=== PATIENT | female | born 1990 | race Caucasian/White ===

== ENCOUNTER → 2023-02-17 09:02 | Outpatient (CLI) | payer BC, OTHER, SELFPAY ==
[2023-02-17 18:14] LABS: Basophils % 0.4 % (0.1-2.0); Eosinophils # 0.1 K/mm3 (0.0-0.4); Eosinophils % 0.7 % (0.1-12.0); Hematocrit 41.2 % (37.0-47.0); Hemoglobin 13.5 g/dL (12.2-16.2); Lymphocytes # 2.1 K/mm3 (0.7-4.5); Lymphocytes % 31.9 % (10-50); Mean Corpuscular HGB Conc 32.7 g/dL (31.8-35.4); Mean Corpuscular Hemoglobin 28.1 pg (27.0-31.2); Mean Corpuscular Volume 85.9 fl (81-99); Mean Platelet Volume 9.2 fl (7.4-10.4); Monocytes # 0.3 K/mm3 (0.1-1.0); Monocytes % 3.8 % (1.7-9.3); Neutrophils # 4.1 K/mm3 (1.8-7.8); Neutrophils % 63.2 % (37.0-80.0); Platelet Count 398 K/mm3 (142-424); Red Cell Distribution Width 13.3 % (11.5-17.5); White Blood Count 6.5 K/mm3 (4.8-10.8)
[2023-02-17 18:37] LABS: Alanine Aminotransferase 77 U/L (12-78); Albumin Level 4.5 g/dl (3.5-5.0); Albumin/Globulin Ratio 1.7 (1.1-1.8); Alkaline Phosphatase 91 U/L (38-126); Aspartate Amino Transferase 49 U/L (14-36); Bilirubin,Total 0.6 mg/dl (0.2-1.3); Blood Urea Nitrogen 4 mg/dl (7-17); Calcium 9.2 mg/dl (8.4-10.2); Carbon Dioxide 23 mmol/L (22.0-30.0); Chloride 97 mmol/L (98-107); Chol/HDL Ratio 1.9 (1-3.5); Cholesterol 165 mg/dl (140-200); Estimated Glomerular Filt Rate 117 ml/min (>60); GFR (African American) 142 ML/MIN (>60); Globulin 2.6 g/dL (1.3-3.2); Glucose 81 mg/dl (74-100); HDL Cholesterol 89 mg/dl (40-60); Sodium 136 mmol/L (136-145); Total Protein,Serum 7.1 g/dl (6.3-8.2); Triglycerides 96 mg/dl (30-150); VLDL Cholesterol 19 mg/dL (0-40)
[2023-02-17 18:48] LABS: Direct LDL Cholesterol 67.29 mg/dL (100-129)
[2023-02-17 19:07] LABS: Thyroid Stimulating Hormone 2.25 uIU/mL (0.465-4.68)
[2023-02-17 19:57] LABS: Hemoglobin A1C 5.1 % (4.0-6.0)
== END ==
PROVIDERS: PCP Nurse Practitioner; Visit Provider Nurse Practitioner
DX: Z00.00 Encounter for general adult medical examination without abnormal findings (principal); Z13.0 Encounter for screening for diseases of the blood and blood-forming organs and certain disorders involving the immune mechanism; Z13.1 Encounter for screening for diabetes mellitus; Z13.220 Encounter for screening for lipoid disorders; Z13.29 Encounter for screening for other suspected endocrine disorder
CPT/HCPCS: 80053; 80061; 83036; 84443; 85025

== ENCOUNTER → 2023-10-06 23:29 | Outpatient (CLI) | payer BC, OTHER, SELFPAY ==
[2023-10-08 09:48] LABS: Rapid Plasma Reagin Ab Titer Non Reactive titer (NonRea<1:1)
[2023-10-08 10:13] LABS: HIV Screen 4th Generation wRfx Non Reactive (Non Reactive)
[2023-10-08 11:19] LABS: HBsAg Screen Negative (Negative); HCV Ab Non Reactive (Non Reactive); Hep A Ab, IGM Negative (Negative); Hep B Core Ab, IgM Negative (Negative)
[2023-10-09 00:04] LABS: Neisseria gonorrhoeae, NAA Negative (Negative)
[2023-10-13 22:35] LABS: HSV 2 IgG, Type Spec <0.91
== END ==
PROVIDERS: PCP Nurse Practitioner; Visit Provider Nurse Practitioner
DX: Z11.3 Encounter for screening for infections with a predominantly sexual mode of transmission (principal)
CPT/HCPCS: 80074; 86593; 86695; 86703; 86790; 87491; 87591; G0432

== ENCOUNTER 2023-11-10 10:53 | Outpatient (CLI) | payer BC, OTHER, SELFPAY ==
--- NOTE | 2023-11-10 10:54 | US_ITS ---
PROCEDURE: US TRANSVAGINAL CLINICAL INDICATION: abdominal pains COMPARISON: No exams were available for comparison FINDINGS: Transvaginal sonographic images of the pelvis were obtained. UTERUS: 6.3cm x 3.4cmx 2.5 cm anteverted with a combined endometrial thickness of 5.8mm. LEFT OVARY: Not visualized RIGHT OVARY: Not visualized Both ovaries are not seen today. Doppler flow to both ovaries are seen.There is no fluid in the cul-de-sac. IMPRESSION: 1. Anteverted uterus normal in shape and size. The endometrium appears normal. 2. Neither ovary could be visualized today. Patient states she had 1 ovary removed but does not know which one. 3. No fluid in the cul-de-sac. Dictated by: Gutierrez Valdez MD 11/10/2023 14:41 Gutierrez Valdez MD in OV 11/10/2023 14:41
== END 2023-11-10 23:59 ==
LOC: RAD 10:54
PROVIDERS: PCP Nurse Practitioner; Visit Provider Obstetrics & Gynecology
DX: R10.2 Pelvic and perineal pain (principal)
CPT/HCPCS: 76830

== ENCOUNTER 2023-12-28 21:10 | Outpatient (CLI) | payer BC, OTHER, SELFPAY ==
[2023-12-28 18:43] LABS: Adenovirus,PCR Not Detected (NotDetected); Coronavirus 19, PCR Not Detected (NotDetected); Coronavirus 229E Not Detected (NotDetected); Coronavirus NL63 Not Detected (NotDetected); Coronavirus OC43 Not Detected (NotDetected); Coronovirus HKU1,PCR Not Detected (NotDetected); Human Metapneumovirus Not Detected (NotDetected); Influenza A, PCR Not Detected (NotDetected); Influenza AH1, 2009 Not Detected (NotDetected); Influenza AH1, PCR Not Detected (NotDetected); Influenza AH3,PCR Not Detected (NotDetected); Influenza B, PCR Not Detected (NotDetected); Parainfluenza 1, PCR Not Detected (NotDetected); Parainfluenza 2, PCR Not Detected (NotDetected); Parainfluenza 3, PCR Not Detected (NotDetected); Parainfluenza 4, PCR Not Detected (NotDetected); Respiratory Syncytial Virus Not Detected (NotDetected)
[2023-12-28 20:37] LABS: Rhinovirus/Enterovirus Detected (NotDetected)
== END 2023-12-28 23:59 ==
LOC: LAB.DROPOF 21:10
PROVIDERS: PCP Nurse Practitioner; Visit Provider Nurse Practitioner
DX: J06.9 Acute upper respiratory infection, unspecified (principal); B34.1 Enterovirus infection, unspecified
CPT/HCPCS: 87632; 87635

== ENCOUNTER 2024-05-10 11:25 | Outpatient (CLI) | payer BC, OTHER, SELFPAY ==
[2024-05-10 19:39] LABS: Basophils % 0.4 % (0.1-2.0); Eosinophils # 0.1 K/mm3 (0.0-0.4); Eosinophils % 0.7 % (0.1-12.0); Hematocrit 41.8 % (37.0-47.0); Hemoglobin 14.8 g/dL (12.2-16.2); Lymphocytes # 2.8 K/mm3 (0.7-4.5); Lymphocytes % 30.5 % (10-50); Mean Corpuscular HGB Conc 35.3 g/dL (31.8-35.4); Mean Corpuscular Hemoglobin 31.4 pg (27.0-31.2); Mean Corpuscular Volume 88.8 fl (81-99); Monocytes # 0.3 K/mm3 (0.1-1.0); Monocytes % 3.4 % (1.7-9.3); Neutrophils # 5.9 K/mm3 (1.8-7.8); Neutrophils % 64.9 % (37.0-80.0); Platelet Count 460 K/mm3 (142-424); Red Cell Distribution Width 13.7 % (11.5-17.5); White Blood Count 9.1 K/mm3 (4.8-10.8)
[2024-05-10 20:08] LABS: Alanine Aminotransferase 24 U/L (12-78); Albumin Level 4.5 g/dl (3.5-5.0); Albumin/Globulin Ratio 1.6 (1.1-1.8); Alkaline Phosphatase 80 U/L (38-126); Anion Gap 11.7 mEq/L (5-15); Aspartate Amino Transferase 21 U/L (14-36); Bilirubin,Total 0.5 mg/dl (0.2-1.3); Blood Urea Nitrogen 11 mg/dl (7-17); Calcium 9.5 mg/dl (8.4-10.2); Carbon Dioxide 26 mmol/L (22.0-30.0); Chloride 104 mmol/L (98-107); Cholesterol 207 mg/dl (140-200); Estimated Glomerular Filt Rate 117 ml/min (>60); GFR (African American) 141 ML/MIN (>60); Globulin 2.9 g/dL (1.3-3.2); Glucose 91 mg/dl (74-100); HDL Cholesterol 101 mg/dl (40-60); Potassium 3.7 mmoL/L (3.5-5.1); Sodium 138 mmol/L (136-145); Total Protein,Serum 7.4 g/dl (6.3-8.2); Triglycerides 104 mg/dl (30-150); VLDL Cholesterol 21 mg/dL (0-40)
[2024-05-10 20:21] LABS: Direct LDL Cholesterol 83.99 mg/dL (100-129)
[2024-05-10 20:38] LABS: Thyroid Stimulating Hormone 2.41 uIU/mL (0.465-4.68)
[2024-05-10 21:21] LABS: Hemoglobin A1C 4.9 % (4.0-6.0)
== END 2024-05-10 23:59 | disposition home or self-care (01) ==
LOC: LAB.DROPOF 05-11 10:57
PROVIDERS: PCP Nurse Practitioner; Visit Provider Nurse Practitioner
DX: Z13.1 Encounter for screening for diabetes mellitus (principal); Z13.0 Encounter for screening for diseases of the blood and blood-forming organs and certain disorders involving the immune mechanism; Z13.29 Encounter for screening for other suspected endocrine disorder; Z13.220 Encounter for screening for lipoid disorders
CPT/HCPCS: 80050; 80053; 80061; 83036; 84443; 85025

== ENCOUNTER 2025-07-04 10:38 | Outpatient (CLI) | payer BC, OTHER, SELFPAY ==
--- OUTSIDE RECORDS SUMMARY | 2018-09-03 21:15 | XMS_ITS | Encounter Summary ---
Author Organization [facility] Address [facility] [place] [address] Care Team Providers Care Small Offset Printer Name Role Phone Alessandro Pemberton MD Primary Care Provider [phone] Encounter Details Date Type Department Care Team (Latest Contact Info) Description 09/03/2018 8:15 PM EST Hospital Encounter [facility] [place] [id number] Left without seen Social History Tobacco Use Types Packs/Day Years Used Date Smoking Tobacco: Never Smokeless Tobacco: Never Alcohol Use Standard Drinks/Week Comments No 0 (1 standard drink = 0.6 oz pur e alcohol) Comments No Sex and Gender Information Value Date Recorded Sex Assigned at Not on file Legal Sex Female 2:49 PM EDT Gender Identity Not on file Sexual Orientation Not on file COVID-19 Exposure Response Date Recorded In the last month, have you been in contact with someone who was confirmed or suspected to have Coronavirus / COVID-19? No / Unsure 07/25/2021 8:02 AM EDT documented as of this encounter Functional Status * Alcohol Screening Score Answer Date of Assessment Author 0 09/02/2020 1:40 PM Kalina Felix RN * Drug Screening Score Answer Date of Assessment Author 0 09/02/2020 1:40 PM Kalina Felix RN * Question Answer Date of Assessment Author How often do you have a drin k containing alcohol? 0 09/02/2020 1:40 PM Kalina Felix R N How many drinks containing a lcohol do you have on a typical day when you are drinking? 0 09/02/2020 1:40 PM Kalina Felix R N How often do you have six or more drinks on one occasion? 0 09/02/2020 1:40 PM Gen Felix RN AUDIT-C to Determine Rows 4-10 0 09/02/2020 1:40 PM Kalina Felix RN documented as of this encounter Plan of Treatment Not on file documented as of this encounter Goals Goal Patient Goal Type Associated Problems Recent Progress Patient-Stated? Author Maintain a healthy diet, exercise regularly and maintain an ideal body weight General No Aurea Calderón, GIORGIO documented as of this encounter Visit Diagnoses Not on filedocumented in this encounter Additional Health Concerns Infection Onset Date Last Indicated Resolved Time R/O C-Diff 11/15/2019 11/15/2019 11/17/2019 10:1 3 PM EST R/O C-Diff 06/10/2020 06/10/2020 06/10/2020 9:45 PM EDT R/O COVID-19 05/14/2021 05/14/2021 05/14/2021 6:59 PM EDT documented as of this encounter Care Teams Small Offset Printer Relationship Specialty Start Date End Date Alessandro Pemberton MD PCP - General Family Medicine 12/31/16 11/02/18 documented as of this encounter
[2025-07-04 15:58] LABS: Hematocrit 41.6 % (37.0-47.0); Hemoglobin 13.5 g/dL (12.2-16.2); Immature Granulocytes % 0.3 %; Mean Corpuscular HGB Conc 32.5 g/dL (31.8-35.4); Mean Corpuscular Hemoglobin 29.4 pg (27.0-31.2); Mean Corpuscular Volume 90.6 fl (81-99); Nucleated Red Blood Cells % 0 %; Platelet Count 408 K/mm3 (142-424); Red Blood Count 4.59 M/mm3 (4.20-5.40); Red Cell Distribution Width-SD 44.1 fL; White Blood Count 6.4 K/mm3 (4.8-10.8)
[2025-07-04 17:09] LABS: Alanine Aminotransferase 23 U/L (12-78); Albumin Level 4.4 g/dl (3.5-5.0); Albumin/Globulin Ratio 1.7 (1.1-1.8); Alkaline Phosphatase 76 U/L (38-126); Anion Gap 10.9 mEq/L (5-15); Aspartate Amino Transferase 23 U/L (14-36); Bilirubin,Total 0.4 mg/dl (0.2-1.3); Blood Urea Nitrogen 8 mg/dl (7-17); Calcium 9.4 mg/dl (8.4-10.2); Carbon Dioxide 25 mmol/L (22.0-30.0); Chloride 103 mmol/L (98-107); Creatinine,Serum 0.60 mg/dl (0.52-1.04); Estimated Glomerular Filt Rate 116 ml/min (>60); GFR (African American) 140 ML/MIN (>60); Globulin 2.6 g/dL (1.3-3.2); Glucose 86 mg/dl (74-100); Potassium 3.9 mmoL/L (3.5-5.1); Sodium 135 mmol/L (136-145); Total Protein,Serum 7.0 g/dl (6.3-8.2)
[2025-07-04 17:39] LABS: Thyroid Stimulating Hormone 2.16 uIU/mL (0.465-4.68)
[2025-07-04 17:58] LABS: Vitamin B12 294 pg/mL (239-931)
[2025-07-04 19:57] LABS: Folate > 20.00 ng/mL
--- OUTSIDE RECORDS SUMMARY | 2025-07-06 10:40 | XMS_ITS | Clinical Summary ---
Author Organization [facility] Address [address] [place] [address] Care Team Providers Care Director Of Compliance Name Role Phone None, None Primary Care Provider Unavailkenn e Joycelyn Leslie MD Unavailable [phone] Cricket Angel MD Unavailable [phone] Toya Lopez MD Unavailable [phone] Trip Messer MD Unavailable [phone] Kiara Uribe NP Unavailable [phone] Marguerite Conn NP Unavailable [phone] Allergies Active Allergy Reactions Criticality Noted Date Comments Adhesive Rash 08/02/2017 Adhesive Tape-Silicones 08/10/2024 Infliximab Hives,Shortness Of Breath Medium 03/24/2018 Nsaids (Non-Steroidal Anti-Inflammatory Drug) Other (See Comments) 06/09/2019 Does not take NSAIDS d/t Crohn's Infliximab 08/10/2024 Medications norgestimate-et hinyl estradiol (SPRINTEC, 28, PO) Take by mouth. Activ e Stelara 90 mg/mL Syringe 12/13/19 Active dicyclomine (BENTYL) 20 mg tablet Take 20 mg by mouth 4 times daily. Takes as needed Active risankizumab-rz aa (SKYRIZI IV) by Intravenous route. Active acetaminophen (TylenoL) 325 mg Capsule Take 325 mg by mouth. Active ondansetron (ZOFRAN) 4 mg tablet Take 1 Tablet (4 mg) by mouth every 6 hours as needed for Nausea or Vomiting for up to 8 doses. 8 Tablet 12/10/19 23 Active promethazine (PHENERGAN) 25 mg tablet Take 1 Tablet (25 mg) by mouth every 6 hours as needed for Nausea or Vomiting. 12 Tablet 02/09/20 23 Active promethazine (PHENERGAN) 25 mg suppository Insert 1 Suppository (25 mg) into rectum every 6 hours as needed for Nausea or Vomiting. 12 Suppository 02/09/20 23 Active predniSONE (DELTASONE) 10 mg tablet Take this medication for 10 days. Take 5 tablets daily for 2 days Take 4 tablets daily for 2 days Take 3 tablets daily for 2 days Take 2 tablets daily for 2 days Take 1 tablets daily for 2 days Then stop. 30 Tablet 02/09/20 23 Active risankizumab-rz aa (Skyrizi) 360 mg/2.4 mL (150 mg/mL) wearable injector 360 mg by Subcutaneous route. Every 8 weeks Active methylPREDNISol one (MEDROL) 4 mg tab (dosepak) follow package directions 21 Tablet 08/10/20 24 Active promethazine (PHENERGAN) 25 mg tablet Take 1 Tablet (25 mg) by mouth every 6 hours as needed for Nausea or Vomiting. 30 Tablet 08/10/20 24 Active Active Problems Problem Noted Date Diagnosed Date Crohn's disease 06/09/2019 Poor intravenous access 06/06/2019 Overview (01/21/2022): Has a port Crohn's disease of small intestine with complica tion 09/16/2017 Overview (01/21/2022): Dx in 2017. Currently treated with Stelara every 6 weeks Sees [facility] Dr. Marie No abdominal pain, some diarrhea Assessment & Plan (01/21/2022 2:06 PM EDT): Well controlled currently continue per GI Microcytic anemia 08/04/2017 Overview (01/21/2022): Related to Crohn as diagnosis Assessment & Plan (01/21/2022 2:07 PM EDT): Monitor CBC yearly History of colon resection 07/15/2010 Overview (01/21/2022): premmie 30 weeker, had colon resection at 10 days of age secondary to NEC Resolved Problems Problem Noted Date Diagnosed Date Resolved Date C. difficile colitis 03/24/2018 022 Immunizations Immunization Administration Dates Next Due HPV 10/09/2013,06/07/2013,04/05/2013 PPD Test 07/10/2013 Tetanus 05/07/2004 Family History Medical History Relation Name Comments High Blood Pressure Father Breast Cancer Maternal Grandmother Cancer Maternal Grandmother thyroid Heart Problems Maternal Grandmother Pacem keith High Blood Pressure Mother Migraines Mother Anesthesia Complications Neg Hx Relation Name Status Comments Father Maternal Grandmother Mother Social History Tobacco Use Types Packs/Day Years Used Date Smoking Tobacco: Never Smokeless Tobacco: Never Tobacco Cessation:Counseling Given: Not Answered Alcohol Use Standard Drinks/Week Comments Never 0 (1 standard drink = 0.6 oz pur e alcohol) PHQ-2 Answer Date Recorded PHQ-9 Auto Total 0 01/21/2022 Comments No Sex and Gender Information Value Date Recorded Sex Assigned at Not on file Legal Sex Female 11:55 AM EDT Gender Identity Not on file Sexual Orientation Not on file Last Filed Vital Signs Vital Sign Reading Time Taken Comments Blood Pressure 93/58 08/10/2024 5:23 PM EDT Pulse 81 08/10/2024 5:23 PM EDT Temperature 36.9 C (98.4 F) 08/10/2024 12:19 PM EDT Respiratory Rate 16 08/10/2024 5:23 PM EDT Oxygen Saturation 100% 08/10/2024 5:23 PM EDT Inhaled Oxygen Concentration - - Weight 72.6 kg (160 lb) 02/07/2023 9:33 PM EDT Height 162.6 cm (5' 4 ) 02/07/2023 9:33 PM EDT Body Mass Index 27.46 02/07/2023 9:33 PM EDT Plan of Treatment Health Maintenance Due Date Last Done Comments Lipid Screening 2012 Cervical Cancer Screening 2013 Tetanus Vaccination (Every 1 0 Years) 05/07/2014 05/07/2004 Depression Screening 10/11/2024 01/21/2022 COVID-19 Vaccine (2023-2 5 season) 2025 Influenza Vaccination (#1) 2025 10/23/1994, Influenza Vaccination (Yearly) Discontinued 10/23/1994 , 09/18/1994 HPV Vaccine Completed 10/09/2013, 05/12, 04/05/2013 Medical Devices Implanted Type Area Ball Truing Machine Operator Device Identifier Shelf Expiration Date Model / Serial / Lot Port Xcela Standard 8fr - [id number] Implanted:Qt y: 1 on 12/09/2022 by Ayaan Montoya MD at [facility] Vas Access [employer] 04/19/2027 [id number] / / [id number] Port Mri W/Sutures 8fr X 45cm Implanted:Qt y: 1 on 06/23/2019 by Trip Messer MD at [facility] Left: Subclavian * BARD VASCULAR 09/09/2020 [id number] / / [id number] Insurance ANTHEM ANTHEM Advance Directives For more information, please contact: [phone] * Full Code (Latest Code Status on File) Date Activated Date Inactivated Comments 09/10/2022 6:14 PM 12/09/2022 6:36 AM No automated chest compression devices for VAD Patients Care Teams Director Of Compliance Relationship Specialty Start Date End Date None, None [address] [place] [address] PCP - General 08/10/24 Joycelyn Leslie MD [address] [place] [address] Internal Medicine 08/10/24 Cricket Angel MD [facility] [address] [place] [address] Gastroenterology 01/07/22 Toya Lopez MD [address] [facility] [place] [address] Internal Medicine 09/11/22 Trip Messer MD [address] [place] [address] General Surgery 10/18/22 Kiara Uribe NP [address] [place] [address] Nurse Practitioner Nurse Practitioner, Adult Health 12/01/22 Marguerite Conn, REFUELING RAMP SUPERVISOR [address] [place] [address] Nurse Practitioner Radiology 12/09/22
--- OUTSIDE RECORDS SUMMARY | 2025-07-06 10:40 | XMS_ITS | Clinical Summary ---
Author Organization [facility] Address [address] [place] [address] Phone Care Team Providers Care Diesel Roller Operator Name Role Phone Shasta Cabrera Unavailable [phone] Conditions or Problems No information available. Medications No information available. Medications Administered No information available. Allergies, Adverse Reactions, Alerts No information available. Results No information available. Plan of Care No information available. Procedures No information available. Vital Signs No information available. Immunizations No information available. Advance Directives No information available.
--- OUTSIDE RECORDS SUMMARY | 2025-07-06 10:40 | XMS_ITS | Clinical Summary ---
Author Organization [facility] Address [address] [place], [place] [address] Phone Care Team Providers Care Furnace Utility Operator Name Role Phone Rosa Raya NP Primary Care Provider [phone] Allergies Active Allergy Reactions Criticality Noted Date Comments Adhesive Rash Medium 08/02/2017 Infliximab Hives,Shortness Of Breath Medium 03/24/2018 Medications Norethindrn A-E Estradiol-Iron 1-20 (24)-75(4) mg-mcg-mg Tab Take by mouth daily. Reported on 12/30/2016 Active pantoprazole (PROTONIX) 40 mg Oral Tablet, Delayed Release (E.C.) Take 40 mg by mouth daily. Active Cyanocobalamin 1,000 mcg Oral Tablet Sustained Release Take 1,000 mcg by mouth daily. 30 Tab 7 Active ergocalciferol (DRISDOL) 50,000 unit Oral Capsule Take 50,000 Units by mouth once a week. Active fluticasone (FLONASE) 50 mcg/actuation Nasl [place], SuspensionIndicat ions:Acute effusion of both middle ears 1 [place] by Nasal route daily. 1 Bottle 8 Active butalbital-acetam gvpf-ypj-kzc 64-831-92-30 mg Oral Capsule Take by mouth every 4 hours. Active FLUoxetine (PROZAC) 20 mg Oral Capsule Take 20 mg by mouth daily. Active Saccharomyces boulardii (FLORASTOR) 250 mg Oral Capsule Take 1 Cap by mouth 2 times daily. 60 Cap 8 Active ferrous sulfate 325 mg (65 mg iron) Oral Tablet, Delayed Release (E.C.) TAKE ONE TABLET BY MOUTH TWICE A DAY 60 Tab 8 Active TROKENDI XR 100 mg Oral Capsule, Sust. Release 24 hr Take 100 mg by mouth daily. 30 Cap 5 9 Active rizatriptan (MAXALT) 10 mg Oral Tablet Take 1 at onset of headache and 1 more 2 hours later if pain persists. Do not exceed 2/d, 4/week or 9/month 9 Tab 5 9 Active oxyCODONE-acetami nophen (PERCOCET) 5-325 mg Oral TabletIndications :Post-op pain Take 1 Tab by mouth every 6 hours as needed for Acute Pain > 3 Days Medically Necessary (R52) (post-procedur e pain). 21 Tab 1 Active cephALEXin (KEFLEX) 500 mg Oral Capsule TAKE ONE (1) CAPSULE THREE (3) TIMES A DAY BY ORAL ROUTE FOR 10 DAYS. 1 Active methylPREDNISolon e (MEDROL DOSPACK) 4 mg Oral Tablets, Dose Pack TAKE DIRECTED FOR SIX (6) DAYS 1 Active promethazine-dext romethorphan (PROMETHAZINE-DM) 6.25-15 mg/5 mL Oral SyrupIndications: Cough Take 5 mL by mouth every 6 hours as needed. 118 mL 1 Active methylPREDNISolon e (MEDROL DOSPACK) 4 mg Oral Tablets, Dose Pack follow package directions 21 Tablet 2 Active methocarbamoL (ROBAXIN) 750 mg Oral Tablet Take 1 Tablet by mouth 3 times daily. 12 Tablet 2 Active tiZANidine (ZANAFLEX) 4 mg Oral TabletIndications :Crohn's disease of small intestine with complication (HCC),Low back pain, unspecified back pain laterality, unspecified chronicity, unspecified whether sciatica present,Sprain of ligaments of lumbar spine, initial encounter Take 1 Tablet by mouth nightly. 30 Tablet 2 Active Active Problems Patient Care Coordination No te Formatting of this note is d ifferent from the original. [facility] - Patrick Negron MD Interventional Pain Protocol: Anirudh report completed (EVERY 3 MONTHS) ( 06/26/2021) Pharmacy:[facility] [place] [address] [address] [facility] - [phone] [facility], [facility] [address] Sp[facility] Center additional info (Transportation, WC, Compound, No Show, PPW) Problem Noted Date Diagnosed Date Cholecystitis 09/02/2020 Overview (09/02/2020): Added automatically from request for surgery [id number] Chronic bilateral low back pain 09/15/2019 Myofascial pain syndrome 09/15/2019 Lumbosacral spondylosis without myelopathy 09/15 C. difficile colitis 03/24/2018 Crohn's disease of small intestine with complica tion 09/16/2017 Microcytic anemia 08/04/2017 History of colon resection 07/15/2010 Overview (07/15/2010): premmie 30 weeker, had colon resection at 8 days of age secondary to NEC Immunizations Immunization Administration Dates Next Due HPV Quadrivalent 10/09/2013,06/07/2013, 3 PPD Test 07/10/2013 Tetanus, Unspecified Formulation 05/07/2004 Surgical History Surgery Date Site/Laterality Comments ABDOMEN SURGERY COLON SURGERY had NEC and large intestines removed at 8 days old OVARY REMOVAL UPPER GASTROINTESTINAL ENDOSCOPY 08/04/2017 N/A ESOPHAGOGASTRODUODENOSCOPY with biopsy and COLONOSCOPY with biopsy ; Surgeon: Barrera Bennett MD; Location: [facility]; Service: Endoscopy COLONOSCOPY SMALL INTESTINE SURGERY SIGMOIDOSCOPY 03/28/2018 N/A FLEXIBLE SIGMOIDOSCOPY with biopsy; Surgeon: Cricket López MD; Location: [facility]; Service: Endoscopy IR PORT PLACEMENT EQUAL OR > 5 YEARS IR 2 LEVEL RIGHT MEDIAL BRAN CH BLOCK LUM SAC 08/31/2019 IR 2 LEVEL RIGHT MEDIAL BRANCH BLOCK LUM SAC 08/31/2019 [facility] IR 2 LEVEL RIGHT MEDIAL BRAN CH BLOCK LUM SAC 10/16/2019 IR 2 LEVEL RIGHT MEDIAL BRANCH BLOCK LUM SAC 10/16/2019 [facility] CHOLECYSTECTOMY, LAPAROSCOPIC 09/03/2020 N/A Laparoscopic cholecystectomy ; Surgeon: Ciro Milton MD; Location: [facility]; Service: General Medical History Medical History Date Comments NEC (necrotizing enterocolitis) Ovarian cyst Microcytic anemia 08/04/2017 Acute Crohn's disease, other complication (HCC) 09/10/2017 Family History Medical History Relation Name Comments High Blood Pressure Father High Cholesterol Father Ulcerative Colitis Father Stroke Maternal Grandmother High Blood Pressure Mother Migraines Mother Colon Cancer Other PGGM Ulcerative Colitis Paternal Grandfather Colon Polyps Neg Hx Hemochromatosis Neg Hx Liver Cancer Neg Hx Rectal Cancer Neg Hx Relation Name Status Comments Father Maternal Grandmother Mother Other PGGM Alive Paternal Grandfather Social History Tobacco Use Types Packs/Day Years Used Date Smoking Tobacco: Never Smokeless Tobacco: Never Tobacco Cessation:Counseling Given: No Alcohol Use Standard Drinks/Week Comments No 0 (1 standard drink = 0.6 oz pur e alcohol) Comments No Sex and Gender Information Value Date Recorded Sex Assigned at Not on file Legal Sex Female 2:49 PM EDT Gender Identity Not on file Sexual Orientation Not on file Obstetrics History Last Filed Vital Signs Vital Sign Reading Time Taken Comments Blood Pressure 110/80 06/27/2021 9:08 AM EDT Pulse 61 06/27/2021 9:08 AM EDT Temperature 37.3 C (99.1 F) 05/14/2021 6:46 PM EDT Respiratory Rate 20 05/14/2021 6:46 PM EDT Oxygen Saturation 97% 06/27/2021 9:08 AM EDT Inhaled Oxygen Concentration - - Weight 72.6 kg (160 lb) 06/17/2022 8:38 AM EDT Height 162.6 cm (5' 4 ) 06/17/2022 8:38 AM EDT Body Mass Index 27.46 06/17/2022 8:38 AM EDT Plan of Treatment Health Maintenance Due Date Last Done Comments Annual Wellness Exam 1995 DTaP/TDaP/Td (1 - Tdap) 2011 Hepatitis B Vaccine (1 of 3 - 19+ 3-dose series) 2011 HPV/Pap Cotest 2022 Cervical Cancer Screening 10/28/2022 Pap Smear 10/28/2022 10/28/2019, 05/11, 05/27/2016, Additional history exists COVID-19 Vaccine ( season) 2025 Influenza Vaccine (#1) 2025 07/22/2018 Meningococcal B Vaccine Aged Out No l onger eligible based on patient's age to complete this topic Pneumococcal Vaccine 0-49 Aged Out No longer eligible based on patient's age to complete this topic Goals Goal Patient Goal Type Associated Problems Recent Progress Patient-Stated? Author Maintain a healthy diet, exercise regularly and maintain an ideal body weight General No Aurea Calder[facility], [facility] [address] [place] [id number] Advance Directives For more information, please contact: [phone] * Full Code (Latest Code Status on File) Date Activated Date Inactivated Comments 03/24/2018 12:45 AM 03/29/2018 8:43 PM Care Teams Furnace Utility Operator Relationship Specialty Start Date End Date Rosa aRya NP [address] [place] [address] PCP - General Nurse Practitioner 11/03/18
--- OUTSIDE RECORDS SUMMARY | 2025-07-06 10:40 | XMS_ITS | Encounter Summary ---
Author Organization [place] Address [facility] [place] [address] Care Team Providers Care Baker Biscuit Name Role Phone Rosa Raya NP Primary Care Provider [phone] Encounter Details Date Type Department Care Team (Latest Contact Info) Description 08/25/2019 Lab Requisition [facility] [address] [place] [id number] Rosa Raya PUBLIC AID ELIGIBILITY ASSISTANT [address] [place], [place] [id number] Crohn's disease, unspecified, without complications (HCC); Iron deficiency anemia, unspecified; Unspecified osteoarthritis, unspecified site Social History Tobacco Use Types Packs/Day Years Used Date Smoking Tobacco: Never Smokeless Tobacco: Never Alcohol Use Standard Drinks/Week Comments No 0 (1 standard drink = 0.6 oz pur e alcohol) Comments No Sex and Gender Information Value Date Recorded Sex Assigned at Not on file Legal Sex Female 2:49 PM EDT Gender Identity Not on file Sexual Orientation Not on file documented as of this encounter Plan of Treatment Not on file documented as of this encounter Goals Goal Patient Goal Type Associated Problems Recent Progress Patient-Stated? Author Maintain a healthy diet, exercise regularly and maintain an ideal body weight General No Aurea Calderón CCMA documented as of this encounter Procedures Procedure Name Priority Date/Time Associated Diagnosis Comments CALPROTECTIN, FECAL - REF LAB Routine 08/25/2019 7:40 PM EST Crohn's disease, unspecified, without complications (HCC) Iron deficiency anemia, unspecified Unspecified osteoarthritis, unspecified site documented in this encounter Results * (ABNORMAL) CALPROTECTIN, FECAL - REF LAB (08/25/2019 7:40 PM EST) Calprotectin, Fecal 568(H) <=50 ug/g 08/29 11:10 AM EST [employer] Comment: Fecal Calprotectin is an indicator of the presence of neutrophils in stool and is not specific for IBD. Other intestinal ailments including GI infections and colorectal cancer can result in elevated concentrations of calprotectin. The diagnosis of IBD cannot be established solely on the basis of a positive calprotectin result. Patients with IBD fluctuate between active and inactive stages of disease. Calprotectin results may also fluctuate. GI bleeding of as much as 100 mL per day will increase the fecal calprotectin concentration by only 15 ug/g. INTERPRETIVE INFORMATION: Calprotectin, Fecal 50 ug/g or less: Normal 51-120 ug/g: Borderline elevated, test should be re-evaluated in 4-6 weeks. 121 ug/g or greater: Abnormal Performed by [facility], [address] [place] [address] [id number] [email or web address], Gurpreet Sands MD, Lab. Director Stool SPECIMEN FROM RECTUM / Unknown 08/25/2019 7:40 PM EST 08/25/2019 9:03 PM EST us Rosa Raya PUBLIC AID ELIGIBILITY ASSISTANT BODY FLUIDS AND STOOLS ORDERABL ES Final Result [employer] [address] [place] [address] [id number] documented in this encounter Visit Diagnoses Diagnosis Crohn's disease, unspecified, without complications (HCC) Iron deficiency anemia, unspecified Unspecified osteoarthritis, unspecified site documented in this encounter Additional Health Concerns Infection Onset Date Last Indicated Resolved Time R/O C-Diff 11/15/2019 11/15/2019 11/17/2019 10:1 3 PM EST R/O C-Diff 06/10/2020 06/10/2020 06/10/2020 9:45 PM EDT R/O COVID-19 05/14/2021 05/14/2021 05/14/2021 6:59 PM EDT documented as of this encounter Care Teams Baker Biscuit Relationship Specialty Start Date End Date Rosa Raya NP [address] [place] [address] PCP - General Nurse Practitioner 11/03/18 documented as of this encounter
--- OUTSIDE RECORDS SUMMARY | 2025-07-06 10:41 | XMS_ITS | Encounter Summary ---
Author Organization [place] [address] Care Team Providers Care Faculty I On Call Medical Assistant Name Role Phone Alessandro Pemberton MD Primary Care Provider [phone] Rosa Raya NP Primary Care Provider [phone] Encounter Details Date Type Department Care Team (Late st Contact Info) Description 09/03/2018 Lab Requisition [facility] [place] [address] Syed Stanton MD [address] [place] [phone] Crohn's disease without complication (HCC); Allergic urticaria; Iron deficiency anemia due to chronic blood loss; Enterocolitis due to Clostridium difficile Social History Tobacco Use Types Packs/Day Years [...] ideal body weight General No Aurea Calderón, [facility] documented as of this encounter Procedures Procedure Name Priority Date/Time Associated Diagnosis Comments CALPROTECTIN, FECAL - REF LAB Routine 09/03/2018 4:35 PM EST Crohn's disease without complication (HCC) Allergic urticaria Iron deficiency anemia due to chronic blood loss Enterocolitis due to Clostridium difficile documented in this encounter Results * (ABNORMAL) CALPROTECTIN, FECAL - REF LAB (09/03/2018 4:35 PM EST) Calprotectin, Fecal 330(H) <=50 ug/g 09/05 6:28 PM EST [facility], [facility] Comment: Fecal Calprotectin is an indicator of [...] 121 ug/g or greater: Abnormal Performed by [facility], [address] [place] [address] [email or web address], Gurpreet Sands MD, Lab. Director Stool SPECIMEN FROM RECTUM / Unknown 09/03/2018 4:35 PM EST 09/03/2018 8:28 PM EST us Syed Stanton MD BODY FLUIDS AND STOOLS MATTHEW REECE Final Result [facility] [address] [place] [address] documented in this encounter Visit Diagnoses Diagnosis Crohn's disease without complication (HCC) Regional enteritis of unspecified site Allergic urticaria Iron deficiency anemia due to chronic blood loss Iron deficiency anemia secondary to blood loss (chronic) Enterocolitis due to Clostridium difficile Intestinal infection due to clostridium difficile documented in this encounter Additional Health Concerns Infection Onset Date Last Indicated Resolved Time R/O C-Diff 11/15/2019 11/15/2019 11/17/2019 10:1 3 PM EST R/O C-Diff 06/10/2020 06/10/2020 06/10/2020 9:45 PM EDT R/O COVID-19 05/14/2021 05/14/2021 05/14/2021 6:59 PM EDT documented as of this encounter Care Teams Faculty I On Call Medical Assistant Relationship Specialty Start Date End Date Alessandro Pemberton MD PCP - General Family Medicine 12/31/16 11/02/18 Rosa Raya NP [address] [place] [address] PCP - General Nurse Practitioner 11/03/18 documented as of this encounter
--- OUTSIDE RECORDS SUMMARY | 2025-07-06 10:41 | XMS_ITS | Encounter Summary ---
Author Organization [facility] [place] [facility] Address [address] [place] [id number] Care Team Providers Care Gear Setter Name Role Phone Joycelyn Leslie MD Primary Care Provider [phone] None, None Primary Care Provider Unavailabl e Joycelyn Leslie MD Unavailable [phone] Cricket Angel MD Unavailable [phone] Toya Lopez MD Unavailable [phone] Trip Messer MD Unavailable [phone] Kiara Uribe NP Unavailable [phone] Marguerite Conn NP Unavailable [phone] Encounter Details Date Type Department Care Team (Late st Contact Info) Description 01/07/2022 Orders Only Ambulatory Procedures [address] [place], [place] [id number] Madison Concepcion RN Crohn's disease of small intestine with complication (Primary Dx); Poor intravenous access Social History Tobacco Use Types Packs/Day Years Used Date Smoking Tobacco: Never Smokeless Tobacco: Never Alcohol Use Standard Drinks/Week Comments Not Currently 0 (1 standard drink = 0.6 oz pur e alcohol) Comments No Sex and Gender Information Value Date Recorded Sex Assigned at Not on file Legal Sex Female 11:55 AM EDT Gender Identity Not on file Sexual Orientation Not on file documented as of this encounter Plan of Treatment Not on file documented as of this encounter Visit Diagnoses Diagnosis Crohn's disease of small intestine with complication (CMS/HCC)- Primary Regional enteritis of small intestine Poor intravenous access Other specified conditions influencing health status documented in this encounter Care Teams Gear Setter Relationship Specialty Start Date End Date Joycelyn Leslie MD [address] [place] [address] PCP - General Internal Medicine 09/03/22 08/09/24 None, None [address] [place] [address] PCP - General 08/10/24 Joycelyn Leslie MD [address] [place] [address] Internal Medicine 08/10/24 Cricket Angel MD [address] [place] [address] [address] [place] [address] Gastroenterology 01/07/22 Toya Lopez MD [address] [facility] Internal [place] [address] Internal Medicine 09/11/22 Trip Messer MD [address] [place] [address] General Surgery 10/18/22 Kiara Uribe NP [address] [place] [address] Nurse Practitioner Nurse Practitioner, Adult Health 12/01/22 Marguerite Conn NP [address] [facility]. Level C [place] [address] Nurse Practitioner Radiology 12/09/22 documented as of this encounter
--- OUTSIDE RECORDS SUMMARY | 2025-07-06 10:41 | XMS_ITS | Patient Health Record ---
Author Organization [facility] Address [address] [id number] Care Team Providers Care Aircraft Restorer Name Role Phone FilibertoKaren silverio APRN Primary Care Provider Alessandro Leonard [phone] Allergies Allergen (clinical drug ingredient) Drug/Non Drug Allergy documented on EMR Reaction Allergy Type Onset Date Status infliximab Remicade Unknown Drug Allergy Active Adhesive Unknown Allergy Active Results Component Value Reference Range Flag Notes CBC WITH DIFFERENTIAL Reviewed date:09/13/2024 11:01:22 PM Interpretation: Abnormal Performing Lab: Notes/Report: [facility] ([facility]) [address] [place] [address] 1 WHITE BLOOD CELL COUNT 8.65 3.80-10.80 10*3/uL RED BLOOD CELL COUNT 4.70 3.80-5.10 10*6/uL HEMOGLOBIN 13.4 11.7-15.5 g/dL HEMATOCRIT BLOOD 40.0 35.0-46.0 % MEAN CORPUSCULAR VOLUME 85.1 80.0-100.0 fL MEAN CORPUSCULAR HEMOGLOBIN 28.5 27.0-33.0 pg MEAN CORPUSCULAR HEMOGLOBIN CONC 33.5 30.0-36.0 g/dL RED CELL DISTRIBUTION WIDTH 12.6 11.0-15.0 % PLATELET COUNT 444 140-400 10*3/uL H MEAN PLATELET VOLUME 9.7 9.0-13.0 fL DIFFERENTIAL Reviewed date:09/13/2024 11:01:22 PM Interpretation: Abnormal Performing Lab: Notes/Report: [facility] ([facility]) [address] [place] [address] 1 NEUTROPHILS ABSOLUTE COUNT 7.56 1.50-7.80 10*3/uL LYMPHOCYTES ABSOLUTE COUNT 0.93 0.80-3.90 10*3/uL MONOCYTES ABSOLUTE COUNT 0.11 0.20-0.90 10*3/uL L EOSINOPHILS ABSOLUTE COUNT 0.01 0.00-0.50 10*3/uL BASOPHILS ABSOLUTE COUNT 0.01 0.00-0.20 10*3/uL IMMATURE GRANULOCYTES ABSOLUTE 0.03 0.00-0.10 10*3/uL NEUTROPHILS RELATIVE PERCENT 87.4 LYMPHOCYTES RELATIVE PERCENT 10.8 MONOCYTES RELATIVE PERCENT 1.3 EOSINOPHILS RELATIVE PERCENT 0.1 BASOPHILS RELATIVE PERCENT 0.1 IMMATURE GRANULOCYTES 0.3 0.0-2.0 % NUCLEATED RED BLOOD CELLS 0 0-0 /100 WBC QDX GI Pathogen Panel (GPP) with additional Pathogens Reviewed date:09/14/2024 10:24:21 AM Interpretation:Calprotectin 171.8, negative infectious studies Performing Lab: Notes/Report: (V. vulnificus/ V. cholerae) Not Detected Adenovirus F 40/41 Not Detected Calprotectin, Stool - QDx 171.8 mg/kg Campylobacter Not Detected Clostridium Difficile Not Detected Entamoeba histolytica Not Detected Enteroaggregative E.Coli (EAEC) Not Detected Enterotoxigenic E.Coli (ETEC) lt/st Not Detected Escherichia Coli O157 (E. coli O157) Not Detected Giardia lamblia Not Detected Norovirus GI/GII Not Detected Rotavirus A Not Detected Salmonella Spp. Not Detected Shiga-like Toxin Producing E.Coli (STEC) stx1/stx2 Not Detected Shigella spp. / Enteroinvasive E.coli (EIEC) Not Detected Vibrio parahaemolyticus Not Detected Yersinia enterocolitica Not Detected Performed at: [facility], [facility]. CLIA #: [id number]. [address], [place], [address]. Ph: [phone] C-REACTIVE PROTEIN (CRP) Reviewed date:09/14/2024 10:24:21 AM Interpretation: Abnormal Performing Lab: Notes/Report: [place] [address] [address] [facility] ([facility]) C-REACTIVE PROTEIN 5.4 0.0-5.0 mg/L H This test will also detect relatively small elevations of CRP that are associated with increased cardiovascular risk. Risk according to AHA/CDC Guidelines: <1.0 mg/L\X09\Lower relative risk of cardiovascular event 1.0-3.0 mg/L\X09\Average relative risk of cardiovascular event >3.0 mg/L\X09\Higher relative risk of cardiovascular event Persistently elevated values (>10.0mg/L) should be evaluated for non-cardiovascular inflammatory etiologies. COMPREHENSIVE METABOLIC PANE L Reviewed date:09/14/2024 10:24:21 AM Interpretation: Abnormal Performing Lab: Notes/Report: [place] [address] [address] [facility] ([facility]) SODIUM 137 135-146 mmol/L POTASSIUM 4.1 3.5-5.1 mmol/L CHLORIDE 102 98-110 mmol/L CO2 25 22-29 mmol/L ANION GAP 10 5-13 mmol/L Anion gap neri culation does not include potassium (K+) value. BUN 7 7-25 mg/dL CREATININE 0.74 0.50-1.20 mg/dL GLUCOSE 168 71-99 mg/dL H Reference ran ge (71-99 mg/dL) refers only to fasting samples, and does not apply to non-fasting samples. EGFR CKD-EPI 2020 110 eGFR calculated with 2020 CKD-EPI equation using creatinine, patient's age and gender. Other factors, especially muscle mass, may affect accuracy and need to be considered. Patient values should be interpreted as a trend. The reference interval is >60 mL/min/1.73m2. CALCIUM 9.8 8.5-10.5 mg/dL BILIRUBIN TOTAL 0.3 0.2-1.2 mg/dL AST (SGOT) 12 0-30 U/L ALT (SGPT) 15 0-40 U/L ALKALINE PHOSPHATASE 68 33-140 U/L TOTAL PROTEIN 7.2 6.0-8.0 g/dL ALBUMIN 4.3 3.5-5.0 g/dL GLOBULIN 2.9 2.0-3.7 g/dL A/G RATIO 1.5 1.0-2.1 NA BUN / CREAT RATIO 9 Gastrointestinal Reviewed date:10/09/2024 09:20:16 AM Interpretation:Crohn's ileitis Performing Lab: Notes/Report: Electronically signed by : Dr.Douglas Gentile on :10/06/2024 15:13:05 Site ID:[id number] Gross Description:Received are 6 murillo tissue fragments which measure up to 1-5 mm in greatest dimension. The specimen is submitted entirely in 1 cassette(s). Rule Outs: crohn's ileitis Clinical History: Crohn's disease of the small bowel MicroScopic Description: Fragments of ileal mucosa are present with an expanded mixed lamina propria inflammatory infiltrate, acute intraepithelial inflammation and mucosal erosion with fibrinopurulent exudate, consistent with ulceration. Features of chronic inflammatory injury (pyloric gland metaplasia, crypt distortion) are not identified. No viral cytopathic effects or pathogenic intraluminal organisms are identified. No dysplasia is identified. While not entirely specific, these findings would be consistent with involvement by the known idiopathic inflammatory bowel disease (clinically Crohn's disease). Diagnosis Summary :Acute ileitis with ulceration. Negative for granulomas or dysplasia. 1:Small intestine, Terminal Ileum Referring Physician : , Location : [facility] : [address] [place] [address] , [address], [place], [place], [address] Reason For Referral Reason skyrizi 360mg 1 per5 6 carelon Diagnosis 1 Crohn's disease of s mall intestine without complications (K50.00) Referred Organization [facility] [place] Referred Provider Alessandro Aleman Referred Address [address],[place], [place],[address], Referral Priority Routine Medications Medication SIG (Take, Route, Frequency, Duration) Notes Start Date End Date Status Ondansetron 4 MG Tablet Disintegrating 1 tablet on the tongue and allow to dissolve Orally Once a day; Duration: 30 day(s) 09/13/2024 Active Na Sulfate-K Sulfate-Mg Sulf 17.5-3.13-1.6 GM/177ML Solution 354 mls as directed Orally daily; Duration: 1 days 1 prep ok 09/21/2024 Active Ondansetron 4 MG Tablet Disintegrating 1 tablet on the tongue and allow to dissolve 30 minutes before prep Orally Once a day; Duration: 2 days 09/21/2024 Active Suprep Bowel Prep Kit 17.5-3.13-1.6 GM/177ML Solution as directed Orally one time dose; Duration: 1 days 12/01/2023 Active Dicyclomine HCl 20 MG Tablet Dicyclomine HCl 20MG, 1 (one) Tablet 1 po q8 hours # 90, 09/01/2022, Ref. x1. Active Oral 1 po q8 hours; Duration: 30 09/01/2022 Unknown predniSONE 10 MG Tablet predniSONE 10MG, 4 Tablet daily # 120, 09/16/2022, Ref. x2. Active Oral daily; Duration: 30 09/16/2022 Unknown Stelara 90 MG/ML Solution Prefilled Syringe Stelara 90MG/ML, 1 (one) Pre-filled Pen Syringe every six weeks # 0, 04/21/2022, No Refill. Active Subcutaneous every six weeks; Duration: 0 04/21/2022 Unknown Skyrizi 600 MG/10ML Solution as directed Intravenous; Duration: 28 days Unknown Skyrizi 360 MG/2.4ML Solution Cartridge inject 1 prefilled cartridge Subcutaneous every 8 weeks; Duration: 56 days 01/08/2023 Active predniSONE 10 MG Tablet 4 tablet Orally Once a day; Duration: 30 days 09/05/2024 Active Sprintec 28 0.25-35 MG-MCG Tablet Sprintec 28( 0.25-35MG-MCG Oral ) Active -Hx Entry Oral; Duration: 0 01/01/2022 Unknown Social History Social History Additional Details Category Social Info Options Details Migrated Social History Migrated Social History Caffeine use, Active, Attribute Title : Carbonated beverages,, Tobacco use, Active, Attribute Title : Never smoker,, Alcohol use, Active, Attribute Title : Never,, Caffeine use, Active, Attribute Title : Coffee,, Illicit drug use, Active, Attribute Title : Never,, Caffeine use, Active, Attribute Title : Tea, Problems Problem Type SNOMED Code ICD Code Onset Dates Problem Status W/U Status Risk Notes Problem Candidiasis of mouth (42894052) Candidal stomatitis (B37.0) Active confirmed Problem Crohn's disease of small intestine (75092614) Crohn's disease of small intestine without complications (K50.00) Active confirmed She had toxic megacolon as a underwent subtotal colectomy with subsequent ileosigmoid reanastomosis. She was diagnosed with inflammatory Crohn's ileitis in 2016 presenting with anemia. Treated with Remicade but developed hives and red face and switch to Entyvio 12/26. 08/28 colonoscopy showed mild to moderate ileal inflammation. Entyvio increased to [id number], secondary nonresponse and switched to Stelara 04/2020 and was well initially but later noted significant fatigue several days before each Stelara injection that improves after. increased to [id number] 05/2021, and doing well. Colonoscopy showing deep ulcers in 2019, resulting in shortened interval to q6week Stelara. Colonoscopy 03/2022 with evidence of active disease, with level 04/2022 notable for ustekinemab level of 2.1, and no antibodies. Patient subsequently underwent reinfusion of Stelara 06/2022, but with evidence of flare. Patient currently improved on prednisone 40 mg daily as well as antibiotics. She will complete antibiotics tomorrow, and continue prednisone 40 mg daily at this time. After discussion regarding treatment options, will transition to Skyrizi. Following infusion of Skyrizi, will begin a slow taper of prednisone. I will also schedule patient for colonoscopy for mucosal inspection given CT findings and will also obtain a fecal calprotectin. 04/30 UST 2.8 Ab neg, increase to every 6 wks 12/01 CRP 17, IVAN and RF negative CBC and comp metabolic normal 09/03/20 underwent chol'y 04/09/20 colonoscopy- anastomosis at 30 cm with deep ulcers, few aphthous ulcers in neoterminal ileum This note was prepared using 3Touch voice recognition software. Occasionally, mistranscription s occur despite my best efforts Problem Crohn's disease (06815118) Crohn's disease, unspecified, without complications (K50.90) Active confirmed Injection principles were discussed in detail including hand hygiene, inspection of device, site selection, and technique. The technique was demonstrated to patient who demonstrated back to me. All questions were answered. Stelara 90mg was injected SQ in LUQ by patient, tolerated well with no AEs noted. Advised patient to contact specialty pharmacy well before next dose to ensure timely delivery. Patient agrees to call office with questions or concerns and will follow-up with prescribing physician. Batch: [id number] Exp: 06/2022 Patient seen in collaboration with Dr. Angel Problem Laboratory test result abnormal (794808432) Abnormal levels of other serum enzymes (R74.8) Active confirmed Patient with abnormal liver function tests and hepatic steatosis on CT. Suspect JOHNSON. Viral serologies negative. I will complete a full serologic evaluation and obtain a right upper quadrant ultrasound. Problem Screening for malignant neoplasm of colon (358082459) Encounter for screening for malignant neoplasm of colon (Z12.11) Active confirmed Problem Long-term current use of drug therapy (885750434) Other terminal make up operator (current) drug therapy (Z79.899) Active confirmed Problem JOHNSON - Nonalcoholic steatohepatitis (360229985) JOHNSON (nonalcoholic steatohepatitis) (K75.81) Active confirmed Problem Crohn's disease (25966846) Crohn's disease without complication, unspecified gastrointestinal tract location (K50.90) Active confirmed Problem Pain in female pelvis (093942610) Pelvic pain in female (R10.2) Active confirmed Vital Signs Blood pressure diastolic 73 mm Hg 09/13/2024 Weight-kg 65.32 kg 09/13/2024 Height 65.00 in 09/13/2024 Blood pressure systolic 120 mm Hg 09/13/2024 Weight 144 lbs 09/13/2024 BMI 23.96 kg/m2 09/13/2024 Encounters Encounter Location Date Provider Diagnosis [facility] [address] [place] [address] 07/19/2024 Alessandro Gay Crohn's disease of s mall intestine without complications K50.[address] [facility] [address] [place] [address] 09/13/2024 Alessandro Aleman Crohn's disease of s mall intestine without complications K50.00 and JOHNSON (nonalcoholic steatohepatitis) K75.81 [facility] [address] [place] [address] 10/02/2024 Alessandro Aleman Crohn's disease of s mall intestine without complications K50.00 and Intestinal bypass and anastomosis status Z98.[address] [facility] [facility] [address] [place] [address] 08/08/2024 Alessandro Aleman Acute abdominal pain R10.9 [facility] [facility] [address] [place] [address] 08/10/2024 Alessandro Gay [facility] [address] [place] [address] 08/10/2024 Alessandro Aleman [facility] [address] [place] [address] 08/23/2024 Alessandro Aleman [facility] [address] [place] [address] 08/24/2024 Alessandro Aleman [facility] [facility] [address] [place] [address] 08/24/2024 Alessandro Aleman [facility] [address] [place] [address] 09/04/2024 Alessandro Aleman Crohn's disease of s mall intestine without complications K50.00 [facility] [address] [facility] [place] [address] 09/13/2024 Alessandro Aleman [facility] [address] [place] [address] 09/15/2024 Alessandro Aleman [facility] [facility] [address] [place] [address] 09/21/2024 Alessandro Aleman [facility] [facility] [address] [place] [address] 10/18/2024 Alessandro Aleman Crohn's disease of s mall intestine without complications K50.00 Assessments Encounter Date Diagnosis (ICD Code) Assessment Notes Treatment Notes Treatment Clinical Notes Section Notes 10/18/2024 Crohn's disease of small intestine without complications (ICD-10 - K50.00) 07/19/2024 Crohn's disease of small intestine without complications (ICD-10 - K50.00) 08/08/2024 Acute abdominal pain (ICD-10 - R10.9) Patient with two days of acute abdominal pain with nausea and vomiting, as well as diarrhea for two days. Previously doing well. I am concerned for flare of disease versus small bowel obstruction versus viral gastroenteritis. I will obtain CBC, CMP, CRP, fecal calprotectin and attempt to obtain a stat CT abdomen/pelvis. The patient was advised to maintain adequate hydration with a clear liquid diet and if she is unable to tolerate clear liquids, to pursue evaluation in the ED. 09/04/2024 Crohn's disease of small intestine without complications (ICD-10 - K50.00) Inflammatory Crohn's ileitis above ileosigmoid anastomosis -YEAR DIAGNOSED: 2017 COMORBITIES: Toxic megacolon as a status post subtotal colectomy -IBD SURGERY: Subtotal colectomy -ENDOSCOPY: 10/2022 colonoscopy: neoterminal ileael erosions -04/09/20 colonoscopy-an anastomosis at 30 cm with deep ulcers, few aphthous ulcers in neoterminal ileum 08/28 colonoscopy mild to moderate ileitis, anastomosis at 27 cm -MEDICATION HX: Remicade 3510-0948 hives, Entyvio 12/26-08/28 every 6 weeks- q 4wks-04/2020 nonresponse, Stelara 05/09/20-q 6 wks 05/31-09/2022 with active disease and inadequate level. Skyrizi 10/2022-current -SMOKING STATUS: Never - BONE HEALTH: Limited steroid use FAMILY HX of IBD or CRC: Father ulcerative colitis - Patient with recurrent abdominal pain with nausea and vomiting as well as sulfur burps. She was seen in [facility] ED and discharged home 08/10/2024, notable for ileal thickening and concern for partial small bowel obstruction. This is occurring while on Skyrizi. I will obtain CBC metabolic panel and CRP, along with infectious stool studies and calprotectin. Additionally, I will arrange for colonoscopy at follow-up office visit but will treat with steroids given concern for partial small bowel obstruction due to inflammation versus stricture at the distal neoterminal ileum. 09/13/2024 Crohn's disease of small intestine without complications (ICD-10 - K50.00) Inflammatory Crohn's ileitis above ileosigmoid anastomosis -YEAR DIAGNOSED: 2016 COMORBITIES: Toxic megacolon as a status post subtotal colectomy -IBD SURGERY: Subtotal colectomy -ENDOSCOPY: 10/2022 colonoscopy: neoterminal ileael erosions -04/09/20 colonoscopy-an anastomosis at 30 cm with deep ulcers, few aphthous ulcers in neoterminal ileum 08/28 colonoscopy mild to moderate ileitis, anastomosis at 27 cm -MEDICATION HX: Remicade 7693-8060 hives, Entyvio 12/26-08/28 every 6 weeks- q 4wks-04/2020 nonresponse, Stelara 05/09/20-q 6 wks 05/31-09/2022 with active disease and inadequate level. Skyrizi 10/2022-current -SMOKING STATUS: Never - BONE HEALTH: Limited steroid use FAMILY HX of IBD or CRC: Father ulcerative colitis - Patient with recurrent abdominal pain with nausea and vomiting as well as sulfur burps. She was seen in [facility] ED and discharged home 08/10/2024, notable for ileal thickening and concern for partial small bowel obstruction. This is occurring while on Skyrizi.Concern for flare of disease and primary Skyrizi failure. Calprotectin elevated, and infectious stool studies negative. Will treat with prednisone and schedule for colonoscopy for mucosal inspection. If Skyrizi failure, will need to assess/decide whether to shorten Skyrizi interval versus switch to alternative, as patient has had extensive failure of alternative agents. 09/13/2024 JOHNSON (nonalcoholic steatohepatitis) (ICD-10 - K75.81) Patient with abnormal liver function tests and metabolic syndrome, with hepatic steatosis on right upper quadrant ultrasound 09/2022. Serologic evaluation 09/2022 unremarkable, consistent with JOHNSON. Patient counseled on lifestyle modifications including cardiovascular exercise 3-5 times a week, a low-fat heart healthy diet with a goal 10% weight reduction. NAFLD fibrosis scote -5.80 (F0-F2 fibrosis 09/2022) 10/02/2024 Crohn's disease of small intestine without complications (ICD-10 - K50.00) 10/02/2024 Intestinal bypass and anastomosis status (ICD-10 - Z98.0) Plan Of Treatment Pending Test Test Name Order Date Skyrizi IV 600 mg infused at 0, 4, 8 wee ks - Crohn' s Disease (CD) 11/11/2022 Skyrizi IV 600 mg infused at 0, 4, 8 wee ks - Crohn' s Disease (CD) 12/09/2022 Future Test Test Name Order Date COMPREHENSIVE METABOLIC PANEL 14 023 CBC (INCLUDES DIFF/PLT) 01/27/2023 IRON, TIBC AND FERRITIN PANEL 07/02/2023 FOLATE, SERUM 07/02/2023 VITAMIN B12 07/02/2023 VITAMIN D,25-OH,TOTAL,IA 07/02/2023 Colonoscopy 12/01/2023 EGD 12/01/2023 BASIC METABOLIC PANEL 08/09/2024 CBC (INCLUDES DIFF/PLT) 08/09/2024 STOOL CALPROTECTIN 08/09/2024 C-REACTIVE PROTEIN 08/09/[address] PELVIS WITH CONTRAST 1 GPP - Gastrointestinal Patho gen Panel Extended (Additional Pathogens) - QDx 09/05/2024 Calprotectin, Stool - QDx 09/05/2024 COMPREHENSIVE METABOLIC PANEL 14 024 CBC (INCLUDES DIFF/PLT) 09/06/2024 C-REACTIVE PROTEIN 09/06/2024 Insurance Providers Payer Name Payer Address Payer Phone Subscriber Number Group Number Insured Name Patient Relationship to Insured Coverage Start Date Coverage End Date [employer] [place] [address] [place] [address] [id number] [employer] Self - patient is the insured 3 Medications Administered Medication Instructions Date of Administration Dosage Notes Ty 01/06/2023 360 mg Medical (General) History Surgical History Surgery Date(Month/Year) Colectomy, Active,
== END 2025-07-04 23:59 ==
LOC: LAB.DROPOF 07-06 10:39
PROVIDERS: PCP Nurse Practitioner; Visit Provider Nurse Practitioner
DX: F41.9 Anxiety disorder, unspecified (principal); F32.A Depression, unspecified; Z87.19 Personal history of other diseases of the digestive system
CPT/HCPCS: 80053; 82607; 82746; 84443; 85025